=== PATIENT | female | born 1990 | race Caucasian/White ===

== ENCOUNTER 2016-05-14 11:59 | Emergency (ER) | payer SELFPAY ==
[2016-05-14 12:14] VITALS: BP 121/67; PULSE 75; TEMP 98.3; O2SAT 100
[2016-05-14 12:15] VITALS: BMI 28.1
--- NOTE | 2016-05-14 13:07 | ED PDOC ---
HPI: Back Time Seen by Provider: 05/14/16 12:06 Chief Complaint (Nursing): Back Pain Chief Complaint (Provider): Back Pain History Per: Patient History/Exam Limitations: no limitations Onset/Duration Of Symptoms: Days (x1 week) Current Symptoms Are (Timing): Still Present Severity: Mild Associated Symptoms: Other (nausea, dysuria and dizziness) Additional Complaint(s): Patient is a 25 year old female presenting to the ED complaining of lower back pain x1 week. Pain radiates to her legs and right lower quadrant. Pain is associated with nausea, dizziness, and dysuria. Patient took a test and results were negative. Patient took Tramadol last night with short term relief. Patient's last menstrual period ended yesterday. Of note: patient has a history of yeast infection with antibiotic usage and had gastric sleeve surgery. PMD: none Past Medical History Reviewed: Historical Data, Nursing Documentation, Vital Signs Vital Signs: Last Vital Signs Temp 98.3 F 05/14/16 12:13 Pulse 75 05/14/16 12:13 Resp BP 121/67 05/14/16 12:13 Pulse Ox 100 05/14/16 12:13 - Medical History PMH: No Chronic Diseases - Surgical History Other surgeries: gastric sleeve - Family History Family History: States: No Known Family Hx - Home Medications Home Medications: Ambulatory Orders Medication Instructions Recorded Cyclobenzaprine [Cyclobenzaprine 10 mg PO TID #20 tab 05/14/16 HCl] Ibuprofen [Motrin] 600 mg PO Q6 #20 tab 05/14/16 Ondansetron ODT [Zofran ODT] 4 mg PO Q6 PRN #10 odt 05/14/16 Sulfamethoxazole/Trimethoprim 1 tab PO BID 3 Days 05/14/16 [Bactrim DS 800 mg-160 mg] - Allergies Allergies/Adverse Reactions: Allergies Allergy/AdvReac Type Severity Reaction Status Date / Time No Known Allergies Allergy Unverified 10/05/14 12:54 Review of Systems ROS Statement: Except As Marked, All Systems Reviewed And Found Negative Gastrointestinal: Positive for: Nausea, Abdominal Pain (rlq) Genitourinary Female: Positive for: Dysuria Musculoskeletal: Positive for: Back Pain (loer) Neurological: Positive for: Dizziness Physical Exam - Reviewed Nursing Documentation Reviewed: Yes Vital Signs Reviewed: Yes - Physical Exam Appears: Positive for: Well, Non-toxic, No Acute Distress Head Exam: Positive for: ATRAUMATIC, NORMAL INSPECTION, NORMOCEPHALIC Skin: Positive for: Normal Color, Warm, DRY Eye Exam: Positive for: Normal appearance, EOMI Neck: Positive for: Normal, Painless ROM Gastrointestinal/Abdominal: Positive for: Normal Exam, Soft. Negative for: Tenderness Back: Positive for: Normal Inspection Extremity: Positive for: Normal ROM Neurologic/Psych: Positive for: Alert, Oriented - ECG O2 Sat by Pulse Oximetry: 100 (RA) Pulse Ox Interpretation: Normal Medical Decision Making Medical Decision Making: Time: 12:10 Impression: UTI Plan: UDip UA Motrin 600 mg PO Dip (-) blood, leuks or nites Preg (-) pt doing well omg re-eval, reports mild flank pain continues. Pt also reports that she went to urinate and now has mild burning on urination.Pt admisnitered Bactrim DS rx as well for clinical UTI. Scribe Attestation: Documented by Regina Vaughn acting as a scribe for Aashish Edwards. Provider Attestation: All medical record entries made by the Scribe were at my direction and personally dictated by me. I have reviewed the chart and agree that the record accurately reflects my personal performance of the history, physical exam, medical decision making, and the department course for this patient. I have also personally directed, reviewed, and agree with the discharge instructions and disposition. Disposition - Clinical Impression Clinical Impression: Back pain - Patient ED Disposition Is Patient to be Admitted: No - Disposition Referrals: FAMILY PROVIDER,NO [Primary Care Provider] - Disposition: Routine/Home Disposition Time: 15:29 Condition: STABLE Prescriptions: Sulfamethoxazole/Trimethoprim [Bactrim DS 800 mg-160 mg] 1 tab PO BID 3 Days Cyclobenzaprine [Cyclobenzaprine HCl] 10 mg PO TID #20 tab Ibuprofen [Motrin] 600 mg PO Q6 #20 tab Ondansetron ODT [Zofran ODT] 4 mg PO Q6 PRN #10 odt PRN Reason: Nausea/Vomiting Instructions: Back Pain (ED) - POA Present On Arrival: None
[2016-05-14 13:25] LABS: RBC URINE 1 /hpf (0-3); URINE BACTERIA RARE (<OCC); URINE BILIRUBIN NEGATIVE (NEGATIVE); URINE BLOOD NEGATIVE (NEGATIVE); URINE COLOR YELLOW (YELLOW); URINE GLUCOSE (UA) NEG (Normal); URINE KETONE NEGATIVE (NEGATIVE); URINE LEUKOCYTE ESTERASE NEG Leu/uL (Negative); URINE PROTEIN NEGATIVE (NEGATIVE); URINE UROBILINOGEN 0.2-1.0 mg/dL (0.2-1.0); WBC URINE 1 /hpf (0-5)
== END 2016-05-14 16:01 | disposition home or self-care (01) ==
LOC: H.ER 11:59
DX: N39.0 Urinary tract infection, site not specified (principal); R30.0 Dysuria
CPT/HCPCS: 81003; 96372; 99281; J2405